=== PATIENT | female | born 1980 | race Two or more races ===

== ENCOUNTER 2019-03-13 17:37 | Emergency (ER) | payer MEDICAID ==
[~2019-03-13] VITALS: Ht 157.5 cm; Wt 56.7 kg
[2019-03-13 23:44] VITALS: BP 120/41
== END 2019-03-14 02:09 | disposition left against medical advice (07) ==
LOC: ER 17:37
DX: F32.9 Major depressive disorder, single episode, unspecified (principal); Z53.21 Procedure and treatment not carried out due to patient leaving prior to being seen by health care provider

== ENCOUNTER 2020-06-18 14:09 | Emergency (ER) | payer MEDICAID ==
[~2020-06-18] VITALS: Ht 157.5 cm; Wt 56.7 kg
[2020-06-18 16:00] VITALS: BP 125/96
== END 2020-06-18 16:32 | disposition home or self-care (01) ==
LOC: ER 14:09
DX: F41.9 Anxiety disorder, unspecified (principal); J06.9 Acute upper respiratory infection, unspecified; Z20.828 Contact with and (suspected) exposure to other viral communicable diseases; Z98.51 Tubal ligation status
CPT/HCPCS: 36415; 71045; 87426

== ENCOUNTER 2021-06-26 00:05 | Emergency (ER) | payer MEDICAID ==
[~2021-06-26] VITALS: Ht 157.5 cm; Wt 54.4 kg
[2021-06-26 02:12] LABS: Basophils # (auto) 0 10 ^3/uL (0-0.2); Basophils % (auto) 0.4 % (0.0-2.0); Eosinophils # (auto) 0 10 ^3/uL (0-0.8); Eosinophils % (auto) 0.1 % (0.0-7.0); Hemoglobin 12.3 g/dL (12.2-16.2); Neutrophils # (auto) 6.4 10 ^3/uL (1.6-8.6); Red Cell Distribution Width 16.9 % (11.8-14.3); White Blood Cell 7.8 10^3/uL (4.4-10.8)
[2021-06-26 02:14] LABS: Hematocrit 37.6 % (36.0-46.0); Lymphocytes # (auto) 0.8 10 ^3/uL (0.4-5.4); Lymphocytes % (auto) 10.7 % (10.0-50.0); Mean Corpuscular Hemoglobin 26.5 pg (28.0-32.0); Mean Corpuscular Hgb Conc. 32.6 g/dL (32.0-36.0); Monocytes # (auto) 0.5 10 ^3/uL (0-1.3); Monocytes % (auto) 6.6 % (0.0-12.0); Neutrophils % (auto) 82.2 % (37.0-80.0); Red Blood Cells 4.64 10^6/uL (4.0-5.20)
[2021-06-26 02:36] LABS: Albumin 3.7 g/dL (3.4-5.0); BUN/Creatinine Ratio 15.8; Calcium 9.1 mg/dL (8.5-10.1); Potassium 4.2 mmol/L (3.5-5.1)
[2021-06-26 02:39] LABS: Bilirubin, Total 0.3 mg/dL (0.2-1.0); Salicylate < 1.7 mg/dL (2.8-20.0); Total Protein 7.8 g/dL (6.4-8.2)
[2021-06-26 03:18] LABS: Acetaminophen < 2.0 ug/mL (10-30)
[2021-06-26] MEDS ORDERED: LORazepam 0.5 MG TAB PO ONE (09:00)
[2021-06-26 13:44] VITALS: BP 117/64
== END 2021-06-26 14:52 | disposition home or self-care (01) ==
LOC: ER 00:05
DX: F41.1 Generalized anxiety disorder (principal); F32.9 Major depressive disorder, single episode, unspecified; R45.851 Suicidal ideations; Z20.822 Contact with and (suspected) exposure to COVID-19; Z32.02 Encounter for pregnancy test, result negative; Z98.51 Tubal ligation status
CPT/HCPCS: 36415; 80053; 80329; 84702; 85025; 87426

== ENCOUNTER 2021-09-15 21:38 | Emergency (ER) | payer MEDICAID ==
[~2021-09-15] VITALS: Ht 154.9 cm; Wt 59.0 kg
[2021-09-15] MEDS ORDERED: LORazepam 2MG/ML-1ML VIAL IV ONE (22:15)
[2021-09-15] MEDS ORDERED: SODIUM CHLORIDE 0.9% 1,000 ML IV ONE (22:15)
[2021-09-15 22:33] LABS: Basophils # (auto) 0.1 10 ^3/uL (0-0.2); Basophils % (auto) 0.8 % (0.0-2.0); Eosinophils # (auto) 0.2 10 ^3/uL (0-0.8); Eosinophils % (auto) 2.2 % (0.0-7.0); Hematocrit 35.5 % (36.0-46.0); Hemoglobin 11.6 g/dL (12.2-16.2); Lymphocytes # (auto) 2.1 10 ^3/uL (0.4-5.4); Lymphocytes % (auto) 26.8 % (10.0-50.0); Mean Corpuscular Hgb Conc. 32.6 g/dL (32.0-36.0); Mean Corpuscular Volume 79.7 fL (80.0-100.0); Monocytes # (auto) 0.8 10 ^3/uL (0-1.3); Monocytes % (auto) 9.9 % (0.0-12.0); Neutrophils # (auto) 4.6 10 ^3/uL (1.6-8.6); Neutrophils % (auto) 60.3 % (37.0-80.0); Nucleated Red Blood Cells % 0.1 %; Red Blood Cells 4.45 10^6/uL (4.0-5.20); White Blood Cell 7.6 10^3/uL (4.4-10.8)
[2021-09-15 22:51] LABS: Albumin 3.3 g/dL (3.4-5.0); BUN/Creatinine Ratio 16.3; Calcium 9.1 mg/dL (8.5-10.1); Potassium 3.7 mmol/L (3.5-5.1)
[2021-09-15 22:54] LABS: Bilirubin, Total 0.2 mg/dL (0.2-1.0); Total Protein 7.1 g/dL (6.4-8.2)
[2021-09-15 23:02] LABS: Beta HCG, Quantitative < 1 mlU/mL (1-3)
[2021-09-16 03:38] VITALS: BP 129/71
== END 2021-09-16 03:51 | disposition home or self-care (01) ==
LOC: ER 21:39
DX: F41.8 Other specified anxiety disorders (principal)
CPT/HCPCS: 36415; 80053; 83735; 84443; 84702; 85025; 96361; 96374; 99283; J2060; J7030